=== PATIENT | male | born 1965 | race Caucasian/White ===

== ENCOUNTER 2016-06-09 17:02 | Emergency (ER) ==
[2016-06-09 17:11] VITALS: BP 138/89; TEMP 98.8; BMI 34.4
[2016-06-09 17:47] LABS: BASOPHILS % (AUTO) 0.4 % (0.0-3.0); EOSINOPHILS # (AUTO) 0.1 K/ul (0.0-0.7); EOSINOPHILS % (AUTO) 2.6 % (0.0-7.0); HEMATOCRIT 42.9 % (42.0-52.0); HEMOGLOBIN 14.6 g/dl (14.0-18.0); IMMATURE GRANULOCYTE % (AUTO) 0.4 % (0.0-5.0); LYMPHOCYTES # (AUTO) 1.3 K/uL (0.60-3.4); LYMPHOCYTES % (AUTO) 28.7 (10.0-50.0); MEAN CORPUSCULAR HEMOGLOBIN 30.3 pg (27.0-31.0); MONOCYTES # (AUTO) 0.6 K/uL (0.4-2.0); MONOCYTES % (AUTO) 11.9 (0-10); NEUTROPHILS # (AUTO) 2.6 K/ul (2.0-6.9); PLATELET COUNT 193 10^3/uL (140-440); RED BLOOD COUNT 4.82 10^6/ul (4.70-6.10); WHITE BLOOD COUNT 4.64 K/ul (4.2-10.2)
--- NOTE | 2016-06-09 17:56 | ED.PDOC ---
General ED Provider: Dr. FLIP CAMARILLO Chief Complaint: Respiratory Complaint Stated Complaint: respiratory distress Time Seen by Physician: 17:10 Mode of Arrival: Walk-In Information Source: Patient Exam Limitations: No limitations Primary Care Provider: NIKKI ACKERMAN Nursing and Triage Documentation Reviewed and Agree: Yes Respiratory Complaint Exam - Respiratory Complaint/Exam Onset/Duration: 1 day ago Symptoms Are: Still present Timing: Intermittent Initial Severity: Moderate Current Severity: Mild Location: Chest Character: Reports: Non-productive cough Aggravating: Reports: None Alleviating: Reports: None Associated Signs and Symptoms: Denies: Rapid breathing, Dyspnea, Fever, Chills, Chest pain, Pleuritic chest pain, Wheezing, Hemoptysis, Dizziness, Calf pain, Calf swelling, Edema, URI, Nasal congestion, Hoarseness, Sinus discomfort, Vomiting, Sore throat, Weight loss, Decreased oral intake, Increased thirst, Increased appetite, Increased urination Related History: Reports: Similar episode History of Healthcare-Acquired Pneumonia: No Related Surgical History: Reports: None Pulmonary Embolism Risk Factors: None Cardiac Risk Factors: Reports: None Pseudomonas Risk Factors: Reports: None Tuberculosis Risk Factors: Reports: None Status Asthmaticus Risk Factors: Reports: None Home Oxygen Use: No Recent Stress Test: No Recent Echo/LV Function: No Current Antibiotic Use: No Current Asthma Medication Use: No Respiratory Distress: None Inadequate Respiratory Effort: No Dysphagia Present: No Stridor Present: No JVD Present: No Accessory Muscle Use: No Retractions: Not Present Diminished Breath Sounds: No Sinus Tenderness: None Grunting Respirations: No Kussmaul Respirations: No Differential Diagnoses: Pneumonia, Bronchitis Review of Systems - Review Of Systems Constitutional: Reports: No symptoms Eyes: Reports: No symptoms Ears, Nose, Mouth, Throat: Reports: No symptoms Respiratory: Reports: Cough Cardiac: Reports: No symptoms GI: Reports: Diarrhea : Reports: No symptoms Musculoskeletal: Reports: No symptoms Skin: Reports: No symptoms Neurological: Reports: No symptoms Endocrine: Reports: No symptoms Hematologic/Lymphatic: Reports: No symptoms All Other Systems: Reviewed and Negative Past Medical History - Past Medical History Previously Healthy: Yes Endocrine: Reports: DM 2 Cardiovascular: Reports: None Respiratory: Reports: None Hematological: Reports: None Gastrointestinal: Reports: None Genitourinary: Reports: None Neuro/Psych: Reports: None Musculoskeletal: Reports: None Cancer: Reports: None - Surgical History General Surgical History: Reports: Unknown - Family History Family History: Reports: Unknown - Social History Smoking Status: Never smoker Hx Substance Use: No Alcohol Screening: Occasionally Physical Exam - Physical Exam Appearance: Well-appearing, No pain distress, Well-nourished Eyes: JING, EOMI, Conjunctiva clear ENT: Ears normal, Nose normal, Oropharynx normal Respiratory: Airway patent, Breath sounds clear, Breath sounds equal, Respirations nonlabored Cardiovascular: RRR, Pulses normal, No rub, No murmur GI/: Soft, Nontender, No masses, Bowel sounds normal, No Organomegaly Musculoskeletal: Normal strength, ROM intact, No edema, No calf tenderness Skin: Warm, Dry, Normal color Neurological: Sensation intact, Motor intact, Reflexes intact, Cranial nerves intact, Alert, Oriented Psychiatric: Affect appropriate, Mood appropriate Critical Care Note - Critical Care Note Total Time (mins): 0 Course - Course Hematology/Chemistry: 06/09/16 17:17 Orders, Labs, Meds: Lab Review 06/09/16 17:17 WBC 4.64 RBC 4.82 Hgb 14.6 Hct 42.9 MCV 89.0 MCH 30.3 MCHC 34.0 RDW Coeff of Clarence 12.7 Plt Count 193 Immature Gran % (Auto) 0.4 Neut % (Auto) 56.0 Lymph % (Auto) 28.7 [place] % (Auto) 11.9 H Eos % (Auto) 2.6 Baso % (Auto) 0.4 Immature Gran # (Auto) 0.0 Neut # 2.6 Lymph # 1.3 [place] # 0.6 Eos # 0.1 Baso # 0.0 Orders Category Date Time Status CBC W/ AUTO DIFF Stat LAB 06/09/16 17:17 Ordered COMPREHENSIVE METABOLIC PANEL Stat LAB 06/09/16 17:17 Ordered CHEST, 2 VIEWS PA & LAT Stat RADS 06/09/16 17:17 Ordered Vital Signs: Temp Pulse Resp BP Pulse Ox 06/09/16 17:03 98.8 F 92 H 20 138/89 95 Departure - Departure Time of Disposition: 17:56 Disposition: HOME SELF-CARE Discharge Problem: Viral syndrome Instructions: Viral Syndrome (ED) Condition: Good Pt referred to PMD for follow-up: No Additional Instructions: Please call your Family Physician as soon as possible to schedule a follow-up appointment. Allergies/Adverse Reactions: Allergies ibuprofen Adverse Reaction (Verified 06/09/16 17:11) Home Medications: Ambulatory Orders Insulin Detemir [Levemir] 36 unit SUBCUT BIDPC 10/19/14 Metformin HCl [Glucophage] 1,000 mg PO BID 10/19/14 Disposition Discussed With: Patient
[2016-06-09 18:04] LABS: ALBUMIN 3.9 g/dL (3.4-5.0); ALBUMIN/GLOBULIN RATIO 1.11; ANION GAP 15.1; BILIRUBIN,TOTAL 0.38 mg/dL (0.00-1.20); BUN/CREATININE RATIO 13.63; CALCIUM 9.3 mg/dL (8.2-10.2); CREATININE 0.88 mg/dL (0.60-1.10); POTASSIUM 4.1 mmol/L (3.5-5.1); TOTAL PROTEIN 7.4 g/dL (6.4-8.2)
--- NOTE | 2016-06-10 02:02 | DI ---
EXAM: Chest, two views, 06/09/2016 HISTORY: Cough COMPARISON: 05/14/2007 FINDINGS / IMPRESSION: Cardiomediastinal contours appear within normal limits. Benign postinflamma tory calcification. There is no focal pulmonary consolidation, effusion or pneumothorax. No acute cardiopulmonary process.
== END 2016-06-09 18:32 | disposition home or self-care (01) ==
LOC: ED 17:02
DX: B34.9 Viral infection, unspecified (principal); E11.9 Type 2 diabetes mellitus without complications; Z79.899 Other long term (current) drug therapy
CPT/HCPCS: 36415; 80053; 85025; 99283

== ENCOUNTER 2023-02-19 19:50 | Observation (INO) ==
[2023-02-19] MEDS ORDERED: ASPIRIN CHEWABLE PO ONE (20:33)
[2023-02-19] MEDS ORDERED: ZOFRAN 4 MG/2 ML IVP ONE (20:33)
[2023-02-19] MEDS ORDERED: NITROSTAT SL STA (20:35)
--- NOTE | 2023-02-19 20:41 | ED.PDOC ---
General ED Provider: Dr. JANET LOOMIS MD Chief Complaint: Diarrhea Stated Complaint: CC: Multiple complaints: Was driving home and nauseated this AM and gagging. Had 5 episodes of diarrhea but some chest pain and tightness upper ant. chest since this AM. No fever for cough but had been coughing a few weeks ago. Did admit to being some SOB today. Hx of DM for 20 years and previous HTN and had TIA like symptoms this past May and transferred to [facility] with full work-up that was negative. Not smokes since his teenage years. Had previous remote stress test. Time Seen by Provider: 02/19/23 20:14 Mode of Arrival: Walk-In Information Source: Patient and Family Primary Care Provider: NIKKI ACKERMAN Referred to ED by: Other (self) Nursing and Triage Documentation Reviewed and Agree: Yes Review of Systems Review Of Systems Constitutional: Reports Weakness; Denies Chills or Fever Eyes: Reports No symptoms Ears, Nose, Mouth, Throat: Reports No symptoms Respiratory: Reports Shortness of Breath; Denies Cough Cardiac: Reports Chest pain GI: Reports Diarrhea and Nausea; Denies Abdominal pain : Reports No symptoms Musculoskeletal: Reports No symptoms Skin: Reports No symptoms Neurological: Reports Headache (some headache, mild currently) All Other Systems: Reviewed and Negative [facility] Social History Smoking and tobacco status: Never smoker Physical Exam Physical Exam Appearance: Reports No pain distress Ill-appearing: Mild Pain Distress: None Eyes: Reports JING and EOMI ENT: Reports Nose normal and Oropharynx normal Neck: Supple Respiratory: Reports Airway patent, Breath sounds clear, Breath sounds equal and Respirations nonlabored; Denies Wheezes or Retractions Cardiovascular: Reports RRR, Pulses normal, No murmur and Tachycardia GI/: Reports Soft, Nontender, No masses, Bowel sounds normal and No Organomegaly; Denies Tender or Mass Musculoskeletal: Reports Normal strength, ROM intact and No edema Skin: Reports Warm, Dry and Normal color Neurological: Reports Sensation intact and Motor intact Psychiatric: Reports Affect appropriate and Mood appropriate Interpretation EKG Interpretation EKG Interpretation By: ED Physician Time of EKG #1: 20:38 Rate: Normal and Tachy Rhythm: Sinus Ectopy: None [place]: NL ST Segment: Normal Interpretation: Sinus Tach, old inferior infarct, abnormal R wave progression, Abnormal EK Critical Care Note Critical Care Note Total Critical Care Time (mins): 0 Course Course 02/19/23 21:00 02/19/23 21:00 Orders, Labs, Meds: Lab Review 02/19/23 02/19/23 02/19/23 21:00 21:50 23:59 WBC 7.95 RBC 5.32 Hgb 15.6 Hct 49.3 MCV 92.7 MCH 29.3 MCHC 31.6 L RDW Coeff of Clarence 13.2 Plt Count 198 Immature Gran % (Auto) 0.4 Neut % (Auto) 84.0 H Lymph % (Auto) 5.9 L [place] % (Auto) 7.3 Eos % (Auto) 2.1 Baso % (Auto) 0.3 Neut # (Auto) 6.7 Lymph # (Auto) 0.5 L [place] # (Auto) 0.6 Eos # (Auto) 0.2 Baso # (Auto) 0.0 Immature Gran # (Auto) 0.0 Sodium 136.2 Potassium 4.28 Chloride 99.4 Carbon Dioxide 28.0 Anion Gap 13.08 BUN 15.8 Creatinine 0.76 Estimated GFR (MDRD) 106.00 BUN/Creatinine Ratio 20.78 Glucose 168.6 H Calcium 9.52 Magnesium 2.03 Total Bilirubin 0.61 AST 37.7 ALT 36.8 Alkaline Phosphatase 60.9 Troponin I < 0.012 < 0.012 Total Protein 8.29 H Albumin 4.82 Globulin 3.47 Albumin/Globulin Ratio 1.38 D-Dimer 714.16 H Influ A Molecular Assay Negative by naat Influ B Molecular Assay Negative by naat SARS CoV-2 RNA Rapid NELLY Negative Orders Category Date Time Status [facility] ADMISSION 02/20/23 00:48 Active EKG-(ED ONLY) Stat CARDIO 02/19/23 20:55 Completed STRESS TEST Routine CARDIO 02/20/23 00:53 Ordered ACTIVITY .Up ad Kelly CARE 02/20/23 00:48 Active GIVE HS SNACK 2100 CARE 02/20/23 00:50 Active NOTIFY PHYSICIAN OF CONSULT ONCE CARE 02/20/23 00:54 Active NPO REMINDER: IMAGING ONCE CARE 02/19/23 21:50 Completed REMINDER: Notify Provider if temp >101.5 PRN CARE 02/20/23 00:53 Active TELEMETRY MONITORING TELE CARE 02/20/23 00:49 Active VITAL SIGNS Q12HR CARE 02/20/23 00:48 Active VITAL SIGNS Q8HR CARE 02/20/23 00:49 Active ADA 1800 ROB. DIET DIETARY 02/20/23 Lunch Ordered HS SNACK DIETARY 02/20/23 Dinner Ordered Saline Lock [ED IV/MEDIPORT/POWERPORT] .ONCE EMERGENCY 02/19/23 20:33 Active CBC W/ AUTO DIFF Stat LAB 02/19/23 21:00 Completed CMP [COMPREHENSIVE METABOLIC PANEL] Stat LAB 02/19/23 21:00 Completed COVID [SARS COV-2 RNA RAPID NELLY] Stat LAB 02/19/23 21:50 Completed D-DIMER Stat LAB 02/19/23 21:00 Completed FLU A & B MOLECULAR [FLU A/B MOLECULAR] Stat LAB 02/19/23 21:50 Completed MAGNESIUM Stat LAB 02/19/23 21:00 Completed TROPONIN I Routine LAB 02/20/23 01:02 Ordered TROPONIN I Stat LAB 02/19/23 21:00 Completed TROPONIN I Timed LAB 02/19/23 23:59 Completed 0.9 % Sodium Chloride [Saline Flush] Meds 02/19/23 20:33 Active 1 syr IVF PRN PRN Aspirin [Aspirin Chewable] Meds 02/19/23 20:33 Discontinued 324 mg PO ONCE ONE Aspirin [Aspirin EC] Meds 02/20/23 07:30 Ordered 325 mg PO DAILYWM2 Empaglifozin [Jardiance] Meds 02/20/23 09:00 Ordered 25 mg PO DAILY Metformin HCl [Glucophage] Meds 02/20/23 09:00 Ordered 1,000 mg PO BID Nitroglycerin [Nitrostat] Meds 02/19/23 20:35 Discontinued 0.4 mg SL ONCE STA Ondansetron HCl/Pf [Zofran 4 mg/2 ml] Meds 02/19/23 20:33 Discontinued 4 mg IVP ONCE ONE gabapentin Meds 02/20/23 09:00 Ordered 200 mg PO DAILY RESUSCITATION STATUS Routine OTHERS 02/20/23 00:48 Ordered CHEST, 2 VIEWS PA & LAT Stat RADS 02/19/23 20:35 Completed CTA CHEST PE PROTOCOL Stat RADS 02/19/23 21:50 Completed ACTIVITIES CONSULT Routine THERAPIES 02/20/23 00:49 Ordered PT INPATIENT EVALUATION Routine THERAPIES 02/20/23 00:48 Ordered Medications Generic Name Dose Route Start Last Admin Trade Name Freq PRN Reason Stop Dose Admin Aspirin 325 mg 02/20/23 07:30 Aspirin 325 Mg Tablet.Dr PO DAILYWM2 EUGENIA Empagliflozin 25 mg 02/20/23 09:00 Empagliflozin 10 Mg Tablet PO DAILY EUGENIA Metformin HCl 1,000 mg 02/20/23 09:00 Metformin Hcl 500 Mg Tablet PO BID EUGENIA Non-Formulary Medication 200 mg 02/20/23 09:00 Gabapentin PO DAILY EUGENIA Sodium Chloride 1 syr 02/19/23 20:33 02/19/23 20:58 0.9% Sodium Chloride 10 Ml Disp.Syrin IVF 1 syr PRN PRN Administration To flush IV Discontinued Medications Generic Name Dose Route Start Last Admin Trade Name Freq PRN Reason Stop Dose Admin Aspirin 324 mg 02/19/23 20:33 02/19/23 20:44 Aspirin 81 Mg Tab.Chew PO 02/19/23 20:34 324 mg ONCE ONE Administration Nitroglycerin 0.4 mg 02/19/23 20:35 02/19/23 20:44 Nitroglycerin 0.4 Mg Tab.Subl SL 02/19/23 20:36 0.4 mg ONCE STA Administration Ondansetron HCl 4 mg 02/19/23 20:33 02/19/23 20:58 Ondansetron Hcl/Pf 4 Mg/2 Ml Sdv IVP 02/19/23 20:34 4 mg ONCE ONE Administration Vital Signs: Temp Pulse Resp BP Pulse Ox 02/19/23 19:53 98.0 F 113 H 18 167/84 H 96 AURA Risk Score Age >/= 65: No >/= 3 CAD Risk Factors: No Known CAD (Stenosis >/= 50%): No ASA Use in Past 7 Days: No Severe Angina (>/= 2 episodes in 24 hours): No EKG ST Changes >/= 0.5mm: No Postive Cardiac Marker: No AURA Total Score: 0 AURA Risk Score: Risk Score Odds of by 30D 0 0.1 (0.1-0.2) 1 0.3 (0.2-0.3) 2 0.4 (0.3-0.5) 3 0.7 (0.6-0.9) 4 1.2 (1.0-1.5) 5 2.2 (1.9-2.6) 6 3.0 (2.5-3.6) 7 4.8 (3.8-6.1) Discharge Plan Discharge Patient Disposition: PLACED OBSERVATION Discharge Problem: Chest pain, precordial Did you review [place] [employer] for ALL controlled substances?: Not Applicable ED Provider: JANET LOOMIS Condition: Stable Physician Progress Note: []Discussed need to repeat 3 hr troponin and do CTA of chest to eval for PE. Discussed likely recommendation of overnight admission for R/O unstable angina and do stress testing. He did get a lot of relief of his chest tightness with the single SL nitro. Repeat troponin neg. Will admit for repeat troponin in the AM and hopefully stress testing by Nic
[2023-02-19 21:00] LABS: BASOPHILS % (AUTO) 0.3 % (0.0-3.0); EOSINOPHILS # (AUTO) 0.2 K/ul (0.0-0.7); EOSINOPHILS % (AUTO) 2.1 % (0.0-7.0); HEMATOCRIT 49.3 % (42.0-52.0); HEMOGLOBIN 15.6 g/dl (14.0-18.0); IMMATURE GRANULOCYTE % (AUTO) 0.4 % (0.0-5.0); LYMPHOCYTES # (AUTO) 0.5 K/uL (0.60-3.4); LYMPHOCYTES % (AUTO) 5.9 (10.0-50.0); MEAN CORPUSCULAR HEMOGLOBIN 29.3 pg (27.0-31.0); MEAN CORPUSCULAR HGB CONC 31.6 (31.8-35.4); MEAN CORPUSCULAR VOLUME 92.7 fl (80.0-94.0); MONOCYTES # (AUTO) 0.6 K/uL (0.4-2.0); MONOCYTES % (AUTO) 7.3 (0-10); NEUTROPHILS # (AUTO) 6.7 K/ul (2.0-6.9); PLATELET COUNT 198 10^3/uL (140-440); RDW COEFFICIENT OF VARIATION 13.2 % (11.6-14.8); RED BLOOD COUNT 5.32 10^6/ul (4.70-6.10); WHITE BLOOD COUNT 7.95 K/ul (4.2-10.2)
[2023-02-19 21:11] LABS: ALANINE AMINOTRANSFERASE 36.8 U/L (0-50); ALBUMIN 4.82 g/dL (3.5-5.0); ALKALINE PHOSPHATASE 60.9 U/L (38-126); ASPARTATE AMINO TRANSFERASE 37.7 U/L (17-59); BILIRUBIN,TOTAL 0.61 mg/dL (0.2-1.3); BLOOD UREA NITROGEN 15.8 mg/dL (9-20); CALCIUM 9.52 mg/dL (8.4-10.2); CHLORIDE 99.4 mmol/L (98-107); CREATININE 0.76 mg/dL (0.60-1.10); GLUCOSE 168.6 mg/dL (74-106); MAGNESIUM 2.03 mg/dL (1.6-2.3); POTASSIUM 4.28 mmol/L (3.5-5.1); SODIUM 136.2 mmol/L (134.5-145); TOTAL PROTEIN 8.29 g/dL (6.3-8.2)
--- NOTE | 2023-02-19 21:15 | DI ---
EXAM: TWO-VIEW CHEST HISTORY: Chest tightness COMPARISON: Two-view chest 06/09/2016 FINDINGS: The heart images silhouette is stable. Benign granulomatous changes without evidence of a ctive pulmonary disease. Fusion changes within the lower cervical spine. IMPRESSION: No evidence of active pulmonary disease
[2023-02-19 21:23] LABS: TROPONIN I < 0.012 ng/ml (0.0000-0.120)
[2023-02-19 22:18] LABS: SARS COV-2 RNA RAPID NAAT NEGATIVE (NEGATIVE)
[2023-02-19 22:20] LABS: MOLECULAR FLU A NEGATIVE BY NAAT (NEGATIVE); MOLECULAR FLU B NEGATIVE BY NAAT (NEGATIVE)
--- NOTE | 2023-02-19 22:55 | CT ---
EXAM: CTA OF THE CHEST. History: Chest tightness, shortness of breath, positive D-dimer. Comparison: Chest radiograph 02/19/2023 Technique: Multiplanar CT images through the thorax were obtained following administration of IV con trast. MIP images and 3-D reconstructions were also acquired. Findings: Heart size is upper limits of normal. No pericardial effusion. Great vessels are unremar kable. No pulmonary arterial filling defects. No pathologic intrathoracic lymphadenopathy. No cons olidation within the lungs. No pleural fluid and no pneumothorax. No suspicious lung masses or lung nodules. Within the visualized upper abdomen, no acute findings. The liver is fatty. No acute osseous abnorm alities. Impression: 1. No pulmonary embolism and no acute intrathoracic process. 2. Hepatic steatosis All CT scans are performed using dose optimization techniques as appropriate to the performed exam an d include at least one of the following: Automated exposure control, adjustment of the mA and/or kV according t o size, and the use of iterative reconstruction technique.
[2023-02-20 02:44] VITALS: BMI 31.1
[2023-02-20 05:32] LABS: BASOPHILS % (AUTO) 0.1 % (0.0-3.0); EOSINOPHILS # (AUTO) 0.1 K/ul (0.0-0.7); EOSINOPHILS % (AUTO) 1.7 % (0.0-7.0); HEMATOCRIT 46.4 % (42.0-52.0); HEMOGLOBIN 14.8 g/dl (14.0-18.0); IMMATURE GRANULOCYTE % (AUTO) 0.5 % (0.0-5.0); LYMPHOCYTES # (AUTO) 0.7 K/uL (0.60-3.4); LYMPHOCYTES % (AUTO) 8.9 (10.0-50.0); MEAN CORPUSCULAR HEMOGLOBIN 29.7 pg (27.0-31.0); MEAN CORPUSCULAR HGB CONC 31.9 (31.8-35.4); MONOCYTES # (AUTO) 0.8 K/uL (0.4-2.0); MONOCYTES % (AUTO) 11.2 (0-10); NEUTROPHILS # (AUTO) 5.8 K/ul (2.0-6.9); NEUTROPHILS % (AUTO) 77.6 % (42.2-75.2); PLATELET COUNT 182 10^3/uL (140-440); RDW COEFFICIENT OF VARIATION 13.3 % (11.6-14.8); RED BLOOD COUNT 4.99 10^6/ul (4.70-6.10); WHITE BLOOD COUNT 7.49 K/ul (4.2-10.2)
[2023-02-20 05:46] LABS: ALANINE AMINOTRANSFERASE 39.2 U/L (0-50); ALBUMIN 4.65 g/dL (3.5-5.0); ALKALINE PHOSPHATASE 52.3 U/L (38-126); ASPARTATE AMINO TRANSFERASE 37.6 U/L (17-59); BILIRUBIN,TOTAL 0.55 mg/dL (0.2-1.3); BLOOD UREA NITROGEN 16.4 mg/dL (9-20); CALCIUM 9.16 mg/dL (8.4-10.2); CARBON DIOXIDE 24.1 mmol/L (22-30.0); CHLORIDE 103.7 mmol/L (98-107); SODIUM 134.3 mmol/L (134.5-145); TOTAL PROTEIN 8.05 g/dL (6.3-8.2)
[2023-02-20] MEDS ORDERED: IMODIUM PO PRN (05:47)
[2023-02-20 06:00] LABS: TROPONIN I < 0.012 ng/ml (0.0000-0.120)
[2023-02-20] MEDS ORDERED: GLUCOPHAGE PO SCH (07:30)
[2023-02-20] MEDS ORDERED: ASPIRIN EC PO SCH (07:30)
[2023-02-20 08:39] LABS: CHOLESTEROL 152.1 mg/dL (0-200); HDL CHOLESTEROL 30.6 mg/dL (35-60); TRIGLYCERIDES 139.1 mg/dL (0-150)
[2023-02-20] MEDS ORDERED: NEURONTIN PO SCH (09:00)
[2023-02-20] MEDS ORDERED: JARDIANCE PO SCH (09:00)
[2023-02-20 09:11] LABS: THYROID STIMULATING HORMONE 1.76 uIU/L (0.465-4.68)
[2023-02-20 10:06] VITALS: RESP 16
[2023-02-20] MEDS ORDERED: MYLANTA SUSP PO PRN (10:37)
[2023-02-20] MEDS ORDERED: PRILOSEC PO SCH (10:40)
[2023-02-20] MEDS ORDERED: DEXTROSE 5%-1/2NS IV SOLUTION 1,000 ML IV SCH (12:30)
[2023-02-20] MEDS ORDERED: PROTONIX PO SCH (12:30)
[2023-02-20] MEDS ORDERED: CARAFATE PO SCH (12:30)
[2023-02-20 14:52] VITALS: BP 140/84; PULSE 91; TEMP 97.4
--- NOTE | 2023-02-20 16:20 | STRESSECHO ---
Date of Test: 02/20/2023 Ordering Physician:DR. NIKKI JOINER (PCP), BARBIE DEL REAL FNP-C (HOSP.), DR. EDWARDS (CONSULT) Reason for Exam: CHEST PAIN, DIABETES MELLITUS TYPE 2, HYPERTENSION, SHORTNESS OF AIR, TIA Smoking History: FORMER Height: 69" Weight: 211lb Current Medications: GABAPENTIN, JARDIANCE, LISINOPRIL, METFORMIN Resting EKG: SINUS RHYTHM NO ACUTE CHANGES Target Heart Rate: 139 / 164 Oxygen saturation on room air: 97% S-T SEGMENT STAGE MPH/GRADE HEART RATE BPM BLOOD PRESSURE MMHG RHYTHM +/- ELEVATION DEPRESSION SYMPTOMS AT REST 80 150/78 SR X NONE 1 1.7/10% 108 168/62 SR X NONE 2 2.5/12% 115 170/64 SR X NONE 3 3.4/14% 4 4.2/16% 5 5.0/18% Immediately After 130 SR X SHORTNESS OF BREATH Minutes Post Exercise 1 125 160/60 SR X NONE Minutes Post Exercise 5 96 136/72 SR X NONE DURATION OF EXERCISE: 9 MINUTES MAXIMUM HEART RATE REACHED: 130 REASON FOR TERMINATION: SHORTNESS OF BREATH INTERPRETATION: 96% OXYGEN SATURATION ON ROOM AIR WITH EXERCISE METS 10.1 1. NO EVIDENCE OF ISCHEMIA BY ST-T WAVE 2. NO CHEST PAIN OR DISCOMFORT 3. RARE PREMATURE VENTRICULAR CONTRACTIONS WITH EXERCISE 4. BLOOD PRESSURE RESPONSE SYSTOLIC HYPERTENSION WITH EXERCISE (MILD) 5. NORMAL LEFT VENTRICULAR CONTRACTILITY RESTING AND WITH EXERCISE MTDD
--- NOTE | 2023-02-20 16:25 | ECHOSTRESS ---
Date of Exam: 02/20/2023 Ordering Physician: DR.KYLE JOINER (PCP), JOAO BARRIENTOS (HOSPITALIST.), DR. EDWARDS (CONSULT) Reason for Echo: CHEST PAIN, DIABETES MELLITUS TYPE 2, HYPERTENSION, SHORTNESS OF BREATH, TIA, STRESS TEST = NO ISCHEMIA METS 10.0 M-Mode Normal Adult Results LV Dimensions Normal Adult Results AoV Opening excursions >1.6 LVEDD-base- 3.5-5.8 Ao root dimensions 2.0-3.7 LVESD-base- 3.1-4.6 L. Atrium dimensions 1.9-3.8 Post. Wall thickness 0.8-1.1 IV septum (thickness) 0.7-1.2 Post. Wall excursion 0.72-1.3 Septal motion Systolic motion R. Ventricular cavity 1.5-2.0 LVEF 60% Paradoxical septal wall motion 2-D: NORMAL LEFT VENTRICULAR CONTRACTILITY RESTING AND POST EXERCISE. M-MODE: MV: AV: TV: PV: CHAMBER SIZE: WALL MOTION: NORMAL LEFT VENTRICULAR CONTRACTILITY RESTING AND POST EXERCISE. PERICARDIUM: INTERPRETATION: 1. NORMAL LEFT VENTRICULAR CONTRACTILITY RESTING AND POST EXERCISE. MTDD
--- NOTE | 2023-02-20 16:31 | PCM.SS ---
Provider Provider[facility] Date Admission Date: 02/19/23 Discharge Date Discharge Date: 02/20/23 Primary Care Physician Primary Care Physician: NIKKI ACKERMAN Chief Complaint Reason For Visit: PRECORDIAL CHEST PAIN History of Present Illness History of Present Illness: Admitted 02/20/23 01:42, this 57 year old /WHITE/M presented to the ER with complaints of nausea, vomiting, diarrhea, and midsternal chest pain. Patient states he was [place] home from [place] when the symptoms started. Described the chest pain as a burning sensation. Did not radiate anywhere. Denies previous [place] history. Has had a stress in the past which was negative, around 10 years ago. Denies taking any medications to relieve symptoms. Denies any sick contacts that he is aware of. Reports just feeling weak. [facility] Medical History (Updated 02/20/23 @ 16:25 by JOAO BARRIENTOS) Diabetes mellitus type 2, noninsulin dependent E11.9 - Type 2 diabetes mellitus without complications (ICD-10) Hypertension I10 - Essential (primary) hypertension (ICD-10) Family History FATHER Lung cancer Social History Smoking and tobacco status: Never smoker Medications Mecications: Medications at Discharge (Home Meds & RX) metformin 1,000 mg tablet 1,000 mg PO BID 11/16/21 empagliflozin 10 mg tablet (Jardiance) 25 mg PO DAILY 05/27/22 gabapentin 300 mg tablet 200 mg PO DAILY 05/27/22 lidocaine HCl 2 % mucosal solution (Lidocaine Viscous) 1 applic mucous membrane QID PRN pain #100 mL 05/27/22 lisinopril 5 mg tablet 5 mg PO DAILY 05/27/22 ondansetron 4 mg disintegrating tablet 4 mg PO Q6H PRN nausea and vomiting #30 tabs 02/20/23 pantoprazole 40 mg tablet,delayed release 40 mg PO DAILY #30 tabs 02/20/23 Allergies Allergies Allergy/AdvReac Type Severity Reaction Status Date / Time ibuprofen AdvReac Hives Verified 02/20/23 02:20 Review of Systems Constitutional: Reports Weakness Head: Reports Normocephalic and Atraumatic Eyes: Reports No symptoms Ears: Reports No symptoms Nose: Reports No symptoms Mouth: Reports No symptoms Throat: Reports No symptoms Cardiovascular: Reports Chest pain (burning) and Other Respiratory: Reports No symptoms Gastrointestinal: Reports Nausea, Vomiting, Diarrhea and Reflux Genitourinary: Reports No Symptoms Musculoskeletal: Reports No symptoms Endocrine: Reports No symptoms Hematology: Reports No symptoms Immunology: Reports No symptoms Neurological: Reports No symptoms Psychiatric: Reports No symptoms Physical Examination Appearance: Positive No Apparent Distress and Alert and Oriented x3 Head: Positive Normocephalic Eyes: Positive JING ENT: Positive Oropharynx Normal Neck: Positive Supple and Non-Tender Heart: Positive RRR and No Murmurs Respiratory: Positive Airway patent, Breath Sounds Clear, Bilaterally, Breath Sounds Equal and Respirations Nonlabored GI/: Positive Soft, Nontender, Bowel sounds normal and No Distention Extremities: Positive Pedal Pulses Palpable Bilaterally Neurological: Positive Cranial nerves intact, Sensation Intact, Motor Intact, Reflexes Intact, Alert and Oriented Psychiatric: Positive Normal Judgement, Normal Insight, Affect Appropriate and Mood Appropriate Vital Signs (Last 4 Hours) Vital Signs Last 4 Hours: Vital Signs: Last 4 Hours 02/20/23 13:00 02/20/23 13:00 02/20/23 14:00 Temperature 97.4 F L Temperature Source Temporal Artery Scan Pulse Rate 91 Respiratory Rate 16 Blood Pressure 140/84 Blood Pressure Mean 102 Blood Pressure Location Left Arm O2 Sat by Pulse Oximetry 96 Oxygen Delivery Method Room Air Room Air Telemetry Type Remote Telemetry Telemetry Monitoring Continues Telemetry Heart Rate 94 EKG CA Interval 0.19 EKG QRS Interval 0.04 L Telemetry Strip Reading SR 02/20/23 14:00 02/20/23 15:00 02/20/23 15:51 Temperature Temperature Source Pulse Rate Respiratory Rate Blood Pressure Blood Pressure Mean Blood Pressure Location O2 Sat by Pulse Oximetry Oxygen Delivery Method Room Air Room Air Room Air Telemetry Type Telemetry Monitoring Telemetry Heart Rate EKG CA Interval EKG QRS Interval Telemetry Strip Reading Labs This Visit Labs This Visit: Labs This Visit 02/19/23 02/19/23 02/19/23 21:00 21:50 23:59 WBC 7.95 RBC 5.32 Hgb 15.6 Hct 49.3 MCV 92.7 MCH 29.3 MCHC 31.6 L RDW Coeff of Clarence 13.2 Plt Count 198 Immature Gran % (Auto) 0.4 Neut % (Auto) 84.0 H Lymph % (Auto) 5.9 L Canyon % (Auto) 7.3 Eos % (Auto) 2.1 Baso % (Auto) 0.3 Neut # (Auto) 6.7 Lymph # (Auto) 0.5 L [place] # (Auto) 0.6 Eos # (Auto) 0.2 Baso # (Auto) 0.0 Immature Gran # (Auto) 0.0 Sodium 136.2 Potassium 4.28 Chloride 99.4 Carbon Dioxide 28.0 Anion Gap 13.08 BUN 15.8 Creatinine 0.76 Estimated GFR (MDRD) 106.00 BUN/Creatinine Ratio 20.78 Glucose 168.6 H Calcium 9.52 Magnesium 2.03 Total Bilirubin 0.61 AST 37.7 ALT 36.8 Alkaline Phosphatase 60.9 Troponin I < 0.012 < 0.012 Total Protein 8.29 H Albumin 4.82 Globulin 3.47 Albumin/Globulin Ratio 1.38 Triglycerides Cholesterol LDL Cholesterol, Calc VLDL Cholesterol HDL Cholesterol Cholesterol/HDL Ratio TSH Free T4 D-Dimer 714.16 H Influ A Molecular Assay Negative by naat Influ B Molecular Assay Negative by naat SARS CoV-2 RNA Rapid NELLY Negative 02/20/23 02/20/23 05:26 05:30 WBC 7.49 RBC 4.99 Hgb 14.8 Hct 46.4 MCV 93.0 MCH 29.7 MCHC 31.9 RDW Coeff of Clarence 13.3 Plt Count 182 Immature Gran % (Auto) 0.5 Neut % (Auto) 77.6 H Lymph % (Auto) 8.9 L Canyon % (Auto) 11.2 H Eos % (Auto) 1.7 Baso % (Auto) 0.1 Neut # (Auto) 5.8 Lymph # (Auto) 0.7 Canyon # (Auto) 0.8 Eos # (Auto) 0.1 Baso # (Auto) 0.0 Immature Gran # (Auto) 0.0 Sodium 134.3 L Potassium 4.30 Chloride 103.7 Carbon Dioxide 24.1 Anion Gap 10.80 BUN 16.4 Creatinine 0.80 Estimated GFR (MDRD) 100.00 BUN/Creatinine Ratio 20.50 Glucose 162.0 H Calcium 9.16 Magnesium Total Bilirubin 0.55 AST 37.6 ALT 39.2 Alkaline Phosphatase 52.3 Troponin I < 0.012 Total Protein 8.05 Albumin 4.65 Globulin 3.40 Albumin/Globulin Ratio 1.36 Triglycerides 139.1 Cholesterol 152.1 LDL Cholesterol, Calc 94 VLDL Cholesterol 28 HDL Cholesterol 30.6 L Cholesterol/HDL Ratio 5.0 TSH 1.760 Free T4 0.99 D-Dimer Influ A Molecular Assay Influ B Molecular Assay SARS CoV-2 RNA Rapid NELLY Imaging Imaging: EXAM: TWO-VIEW CHEST HISTORY: Chest tightness COMPARISON: Two-view chest 06/09/2016 FINDINGS: The heart images silhouette is stable. Benign granulomatous changes without evidence of active pulmonary disease. Fusion changes within the lower cervical spine. IMPRESSION: No evidence of active pulmonary disease Date of Test: 02/20/2023 Ordering Physician:DR. NIKKI JOINER (PCP), BARBIE DEL REAL FNP-C (HOSP.), DR. LUCERO (CONSULT) Reason for Exam: CHEST PAIN, DIABETES MELLITUS TYPE 2, HYPERTENSION, SHORTNESS OF AIR, TIA Smoking History: FORMER Height: 69" Weight: 211lb Current Medications: GABAPENTIN, JARDIANCE, LISINOPRIL, METFORMIN Resting EKG: SINUS RHYTHM NO ACUTE CHANGESTarget Heart Rate: 139 / 164 Oxygen saturation on room air: 97% S-T SEGMENT STAGE MPH/GRADE HEART RATE BPM BLOOD PRESSURE MMHG RHYTHM +/- ELEVATION DEPRESSION SYMPTOMS AT REST 80 150/78 SR X NONE 1 1.7/10% 108 168/62 SR X NONE 2 2.5/12% 115 170/64 SR X NONE 3 3.4/14% 4 4.2/16% 5 5.0/18% Immediately After 130 SR X SHORTNESS OF BREATH Minutes Post Exercise 1 125 160/60 SR X NONE Minutes Post Exercise 5 96 136/72 SR X NONE DURATION OF EXERCISE: 9 MINUTES MAXIMUM HEART RATE REACHED: 130 REASON FOR TERMINATION: SHORTNESS OF BREATH INTERPRETATION: 96% OXYGEN SATURATION ON ROOM AIR WITH EXERCISEMETS 10.1 1. NO EVIDENCE OF ISCHEMIA BY ST-T WAVE 2. NO CHEST PAIN OR DISCOMFORT 3. RARE PREMATURE VENTRICULAR CONTRACTIONS WITH EXERCISE 4. BLOOD PRESSURE RESPONSE SYSTOLIC HYPERTENSION WITH EXERCISE (MILD) 5. NORMAL LEFT VENTRICULAR CONTRACTILITY RESTING AND WITH EXERCISE Date of Exam: 02/20/2023Ordering Physician: DR.KYLE JOINER (PCP), JOAO BARRIENTOS (HOSPITALIST.), DR. LUCERO (CONSULT) Reason for Echo: CHEST PAIN, DIABETES MELLITUS TYPE 2, HYPERTENSION, SHORTNESS OF BREATH, TIA, STRESS TEST = NO ISCHEMIA METS 10.0 M-Mode Normal Adult Results LV Dimensions Normal Adult Results AoV Opening excursions >1.6 LVEDD-base- 3.5-5.8 Ao root dimensions 2.0-3.7 LVESD-base- 3.1-4.6 L. Atrium dimensions 1.9-3.8 Post. Wall thickness 0.8-1.1 IV septum (thickness) 0.7-1.2 Post. Wall excursion 0.72-1.3 Septal motion Systolic motion R. Ventricular cavity 1.5-2.0 LVEF 60% Paradoxical septal wall motion 2-D: NORMAL LEFT VENTRICULAR CONTRACTILITY RESTING AND POST EXERCISE. M-MODE: MV: AV: TV: PV: CHAMBER SIZE: WALL MOTION: NORMAL LEFT VENTRICULAR CONTRACTILITY RESTING AND POST EXERCISE. PERICARDIUM: INTERPRETATION: 1. NORMAL LEFT VENTRICULAR CONTRACTILITY RESTING AND POST EXERCISE. Review Review Statement: I have independently reviewed and interpreted the labs/EKGs/imaging that were ordered by the ER provider. I have reviewed all outside records that are available currently in our EMR including imaging/notes/labs from previous visits. Plan Reccomendations/Plan: 1. Chest pain - serial troponins completed and negative, echo/stress echo completed and negative, chest pain resolved with treatment of reflux s/sx, aspirin 81 mg daily 2. Gastritis/Gerd - protonix 40 mg daily, full liquid advance diet as tolerated 3. Diabetes Mellitus, Type 2 - ADA diet, continue home medications Additional Planning: Case discussed with ED Physician, Dr. Aguilar. DVT Prophylaxis: Up ad deyanira Disposition: Admit to: Med/surg Observation Discussed Plan of Care with Dr. Saundra Lucero If patient discharged with Left Ventricular Systolic Dysfunction: NA Discharged with a beta froilan? [] If no, why not? [] Discharged with an ian/arb? [] If no, why not? [] Diabetic Diet Activity as tolerated Start taking protonix 40 mg daily in the morning for acid reflux/gastritis Zofran 4 mg as needed for nausea/vomiting Aspirin 81 mg take daily for heart protection Chest pain work-up negative YOU HAVE A HOSPITAL FOLLOW UP WITH DR. ACKERMAN ON January AT 10:30AM. SHOULD YOU HAVE ANY QUESTIONS OR NEED TO RESCHEDULE YOU CAN CONTACT THEIR OFFICE AT [phone]. Review With Patient Reviewed with Patient and Family: Patient and family have been counseled on condition and care plan and have no immediate questions. I have personally discussed and reviewed the patient's visit/current labs/im aging/decision making with Dr. Liseth Lucero, my supervising attending. Total number of minutes spent with patient 85 min. More than 50% of the time spent with this patient was devoted to counseling and coordination of care. Time of Admission:02/20/23 01:42 Time of Discharge: 02/20/23 16:15 Discharge Plan Discharge Discharge Orders: Discharge Patient (ONCE); Ordered 02/20/23 Ordered By: BARBIE DEL REAL Activity Restrictions/Additional Instructions: Diabetic Diet Activity as tolerated Start taking protonix 40 mg daily in the morning for acid reflux/gastritis Zofran 4 mg as needed for nausea/vomiting Aspirin 81 mg take daily for heart protection Chest pain work-up negative YOU HAVE A HOSPITAL FOLLOW UP WITH DR. ACKERMAN ON January AT 10:30AM. SHOULD YOU HAVE ANY QUESTIONS OR NEED TO RESCHEDULE YOU CAN CONTACT THEIR OFFICE AT [phone]. Instructions: Chest Pain (GEN), Gastritis (GEN) Patient Disposition: HOME SELF-CARE Prescriptions: New pantoprazole 40 mg Tablet,Delayed Release (Dr/Ec) 40 mg PO DAILY Qty: 30 0RF ondansetron 4 mg tablet,disintegrating 4 mg PO Q6H PRN (Reason: nausea and vomiting) Qty: 30 0RF Continued lisinopril 5 mg Tablet 5 mg PO DAILY gabapentin 300 mg Tablet 200 mg PO DAILY Jardiance 10 mg Tablet 25 mg PO DAILY lidocaine HCl [Lidocaine Viscous] 2 % solution 1 applic mucous membrane QID PRN (Reason: pain) Qty: 100 0RF metformin 1,000 mg Tablet 1,000 mg PO BID Did you review [place] V[employer]UAL [employer]UCATION DIRECTOR for ALL controlled substances?: No Discussed opioids are addictive and Narcan is available by prescription or from pharmacy.: No Condition: Stable
--- NOTE | 2023-02-20 16:32 | ECHO2D ---
Date of Exam: 02/20/2023 Ordering Physician: DR. NIKKI JOINER (PCP), JOAO BARRIENTOS (HOSPITALIST), DR. EDWARDS(CONSULT) Room #: 118 Reason for Echo: CHEST PAIN, DIABETES MELLITUS TYPE 2, SHORTNESS OF BREATH, TIA, HYPERTENSION M-Mode Normal Adult Results LV Dimensions Normal Adult Results AoV Opening excursions >1.6 >1.6 LVEDD-base- 3.5-5.8 4.5 Ao root dimensions 2.0-3.7 3.8 LVESD-base- 3.1-4.6 L. Atrium dimensions 1.9-3.8 4.2 Post. Wall thickness 0.8-1.1 1.2 IV septum (thickness) 0.7-1.2 1.2 Post. Wall excursion 0.72-1.3 NORMAL Septal motion NORMAL Systolic motion R. Ventricular cavity 1.5-2.0 NORMAL LVEF 60% 55% Paradoxical septal wall motion NORMAL 2-D : ENLARGED LEFT ATRIAL CAVITY OTHERWISE NORMAL STUDY. 2-D M Mode Echocardiogram was performed using apical four chamber and left parasternal long and short axis views. Mitral, tricuspid and aortic valves appear to be normal. Contractility of the left ventricle seems to be normal, so is the cavity size. LEFT ATRIAL CAVITY SIZE IS ENLARGED. Aortic root appears to be normal. There is no pericardial effusion. There is no thrombus noted in the left ventricle or left atrial cavity. M-MODE: MV: NORMAL AV: NORMAL TV: NORMAL PV: NORMAL CHAMBER SIZE: ENLARGED LEFT ATRIAL CAVITY. WALL MOTION: NORMAL PERICARDIUM: NORMAL INTERPRETATION: 1. LEFT VENTRICULAR HYPERTROPHY WITH ENLARGED LEFT ATRIAL CAVITY. 2. NORMAL LEFT VENTRICLE SIZE AND LEFT VENTRICULAR CONTRACTILITY. 3. NORMAL VALVES. MTDD
--- NOTE | 2023-02-21 13:26 | CONS ---
DATE OF CONSULTATION: 02/20/23 PRIMARY PHYSICIAN: Dr. ACKERMAN [place] REASON FOR CONSULTATION: Chest pain HISTORY OF PRESENT ILLNESS: 57 year old white male hospitalized through the emergency room on 02/19/23, complaint of having acute gastroenteritis, symptoms with diarrhea, nausea and vomiting. He had pizza at [place], [place] in a few hours he started having these problems, came to the emergency room at [place]. He also complained of reflux type of symptoms with tightness in the chest. The patient also had symptoms of upper respiratory tract infection a few weeks prior to coming to the emergency room. REVIEW OF SYSTEMS: CONSTITUTIONAL: No night sweats. Fatigue and weakness. No fever or chills. HEENT: Eyes: No visual changes. No eye pain. No eye discharge. ENT: No sinus drainage. No epistaxis. No sinus pain. No sore throat. No odynophagia. No ear pain. No congestion. RESPIRATORY: Mild cough but has resolved, no congestion. No hemoptysis. No shortness of breath. CARDIOVASCULAR: No angina symptoms. No CHF symptoms. No atypical chest pain for CAD. No palpitations. No orthopnea. Chest tightness. Weakness. GASTROINTESTINAL: No abdominal pain. Nausea and vomiting. Severe diarrhea nearly 24 hours duration, eased up some today. No hematemesis. No hematochezia. GENITOURINARY: No urgency. No frequency. No dysuria. No hematuria. No obstructive symptoms. No discharge. No pain. No significant abnormal bleeding. MUSCULOSKELETAL: No musculoskeletal pain. No joint swelling. NEUROLOGICAL: No headache. No neck pain. No syncope. No seizures. No dizziness. PSYCHIATRIC: Not anxious. No depression. No suicidal thoughts. No homicidal thoughts. SKIN: No rash. No lesions. No wounds. ENDOCRINE: No unexplained weight loss. No weight gain. HEMATOLOGIC/LYMPHATIC: No anemia. No purpura. No petechiae. No prolonged or excessive bleeding. No palpable lymph nodes. MEDICATIONS: Metformin Jardiance Gabapentin Lisinopril ALLERGIES: Ibuprofen PAST MEDICAL HISTORY/PAST SURGICAL HISTORY: Diabetes Mellitus Dyslipidemia Neuropathy SOCIAL/PERSONAL/FAMILY HISTORY: Nonsmoker. No alcohol abuse. The Marilou is sitting in the room. No history of drug abuse. PHYSICAL EXAMINATION: GENERAL: The patient is oriented to time, place and person. VITAL SIGNS: Temperature 98.6, pulse 90, respiratory rate 15, blood pressure 126/75 and pulse ox 95% on room air. HEENT: Head normocephalic, atraumatic. Eyes: Extraocular muscles are intact. Pupils are equal, round and reactive to light and accommodation. Ears: No lesions. Nose appeared normal. Throat: No exudate or erythema. NECK: Supple. No JVD, no carotid bruit. No lymphadenopathy or thyromegaly. LUNGS: Decreased breath sounds but clear to auscultation. Percussion note normal. Chest symmetrical. HEART: S1, S2, no S3. No murmurs. No cyanosis or clubbing. No ascites. Pulses: Dorsalis pedis and posterior tibial pulses +2 bilaterally. ABDOMEN: Soft. Nontender. Bowel sounds active. No CVA tenderness. No mass felt. EXTREMITIES: No edema. Full range of motion of all extremities, equal. NEUROLOGIC: No focal deficit. Cranial nerves II through XII are grossly intact. No headache, no double vision or headache. SKIN: Not dry. Intact. Turgor - normal. LYMPHATIC: No palpable lymph nodes/no lymphedema. MUSCULOSKELETAL: Normal joints with no swelling. Muscle tone is normal. LABS: Troponin negative times two, creatinine 0.8, BUN 16, potassium 4.3, glucose 162. Hgb 14, hct 46, WBC 7,400 normal differential. ASSESSMENT: 1. Acute gastroenteritis 2. Chest tightness likely from reflux with esophageal spasm 3. Chest pain, rule out any ischemia or insufficiency with multiple risk factors for coronary artery disease like family history and diabetes mellitus, hypertension and dyslipidemia 4. Diabetes Mellitus type II 5. Dyslipidemia 6. Hypertension. RECOMMENDATIONS: 1. Agreed with present management with telemetry 2. EKG which was done in my presence which showed sinus rhythm, no acute changes 3. Strips examined and no ST-T wave changes noted. 4. Start IV fluids, the patient has been NPO ever since he has been hospitalized more than 24 hours and he says that he has been feeling tired. We will start IV fluids 1,000cc 8 hourly bag 5. Protonix 40mg twice a day 6. Carafate 1gram PO QID 7. The patient was already on Prilosec 20mg and we will discontinue that 8. Lipid profile 9. T4 TSH 10. We will do echocardiogram to evaluate LV function 11. Stress echo to rule out coronary insufficiency ADDENDUM: The patient had echocardiogram done which showed LVH with LA cavity enlargement, normal LV function noted, valvular structures normal. Stress echo negative for ischemia. The patient's exercise tolerance is good with patient walking on [place] Protocol for 9 minutes, reached the heart rate of 130. Resting heart rate was 80 per minute. The patient had no ST-T wave change, no chest pain. The patient's echocardiogram showed normal LV contractility at rest and also post exercise. The patient had a couple of PVC's during the stress test, saturation was 98% on room air. CONCLUSION: Considering the patient's finding of having chest tightness at rest with no practical change in the EKG, negative Troponin, negative EKGs, telemetry strips not revealing any ST-T wave change. Echo normal, LV contractility, stress echo negative for ischemia and considering all that the patient's chest pain is noncardiac. CARDIOVASCULAR STATUS: Stable Case discussed with Nurse PractitionerSimon. Thanks for referral. LEVEL: 5 MTDD
== END 2023-02-20 16:48 | disposition home or self-care (01) ==
LOC: MEDSURG B 19:50 → ED 19:50 → MEDSURG B 02-20 02:04
PROVIDERS: ADMIT Hospitalist; ATTEND Nurse Practitioner Family